=== PATIENT | female | born 1960 | race Caucasian/White ===

== ENCOUNTER → 2019-03-09 | Outpatient (CLI) | payer OTHER ==
[~2019-03-09] MED LIST: ASA81BEC; DILTIAZEM 24HR180 M2 PO; DOXYCYCLINE 10100 MG PO; NITROGLYCERIN1 EAC1 TD; NORCO 5-325 TA1 EACH PO; OMEPRAZOLE 20 M20 MG PO; ZOCOR40 MG PO
== END ==
LOC: RAD 10:24
DX: M10.9 Gout, unspecified (principal); Z88.0 Allergy status to penicillin

== ENCOUNTER → 2019-05-16 | Outpatient (CLI) | payer OTHER | LOC: ULTRA 11:41 | DX: M79.604 Pain in right leg (principal); M79.89 Other specified soft tissue disorders ==